=== PATIENT | female | born 1980 | race Caucasian/White ===

== ENCOUNTER 2018-05-20 11:26 | Emergency (ER) | payer MEDICAID ==
[~2018-05-20] VITALS: Ht 162.6 cm; Wt 46.7 kg
[2018-05-20 11:37] VITALS: BP_SYST 115
[2018-05-20 12:50] VITALS: BP_SYST 115
== END 2018-05-20 12:50 | disposition home or self-care (01) ==
LOC: SED 11:26
DX: J40 Bronchitis, not specified as acute or chronic (principal)
CPT/HCPCS: 99283

== ENCOUNTER 2021-01-02 12:14 | Emergency (ER) | payer MEDICAID ==
[~2021-01-02] VITALS: Ht 162.6 cm; Wt 47.6 kg
[2021-01-02 12:27] VITALS: BP_SYST 111
[2021-01-02] MEDS ORDERED: CLIN300C12 PO (12:40)
[2021-01-02 12:46] VITALS: BP_SYST 111
== END 2021-01-02 12:46 | disposition home or self-care (01) ==
LOC: SED 12:14
DX: K08.539 Fractured dental restorative material, unspecified (principal); K02.9 Dental caries, unspecified; Z88.0 Allergy status to penicillin; Z79.899 Other long term (current) drug therapy
CPT/HCPCS: 99283

== ENCOUNTER 2022-02-14 01:06 | Emergency (ER) | payer MEDICAID ==
[~2022-02-14 01:06] MED LIST: CLIN-142 PO
--- NOTE | 2022-02-14 01:55 | NUR ---
Called patient x 3, no answer. Patient left without being seen. No further treatment provided. ER MD aware
== END 2022-02-14 01:55 | disposition left against medical advice (07) ==
LOC: SED 01:06
DX: N23 Unspecified renal colic (principal); Z53.21 Procedure and treatment not carried out due to patient leaving prior to being seen by health care provider

== ENCOUNTER 2023-07-27 09:28 | Emergency (ER) | payer MEDICAID, OTHER ==
[~2023-07-27] VITALS: Ht 162.6 cm; Wt 48.1 kg
[2023-07-27 09:30] VITALS: BP_SYST 125; PULSE 61; RESP 18; TEMP 97; O2SAT 98
[2023-07-27] MEDS: KETOROLAC TROMETHAMINE 15 MG VIAL IM ONE (10:00)
[2023-07-27] MEDS ORDERED: ACET-2634 PO (11:52)
[2023-07-27] MEDS ORDERED: IBUP-1969 PO (11:52)
== END 2023-07-27 12:01 | disposition home or self-care (01) ==
LOC: SED 09:28
DX: M54.2 Cervicalgia (principal); Z88.0 Allergy status to penicillin; Z79.899 Other long term (current) drug therapy
CPT/HCPCS: 36415; 72125-TC; 76376; 84702; 99284